=== PATIENT | female | born 1985 | race American Indian/Alaskan Native ===

== ENCOUNTER 2016-07-19 13:16 | Emergency (ER) | payer MEDICAID, OTHER ==
[2016-07-19 13:36] VITALS: BMI 28.1
--- NOTE | 2016-07-19 13:36 | OBHP ---
Datetime: 07/19/2016 13:30 IP Adm Impression: , intrauterine IP Chief Complaint Other: dizziness/cramping/vomiting Admit Comment, IP Provider: at 36weks came with c/o craming and dizziness. pt has been vomitin g through out the preg and taking reglan. vomited x 2 day,,no vb, lof,+fm, no dysuria obhx 2 x pmh den med pnv all nkda psh den soch de ve closed a/p at 36 +weeks r/o pt labor r/o uti cbc/cmp/ua cont katy and efm cont close observation Pelvic Type - PN: Adequate Extremities - PN: Normal Abdomen - PN: Normal Back - PN: Normal Breast - PN: Not Done Lungs - PN: Normal Heart - PN: Normal Thyroid - PN: Not Done Neurologic - PN: Normal HEENT - PN: Normal General - PN: Normal FHR - Baseline A Provider: 130 Contraction Comments Provider: none Comments, ACOG Physical Exam: gravid,non ten ext no edema,no jason ve closed Vital Signs Provider: Reviewed NICHD Variability Prov Fetus A: Moderate 6-25bpm NICHD Accel Fetus A IP Provider: 15X15 FHR Category Provider Fetus A: Category I NICHD Decel Fetus A IP Provider: None Dilatation, Provider: 0 Effacement, Provider: 0 Station, Provider: -3 Genitourinary Exam: Normal DTRs - PN: Normal
[2016-07-19 14:00] LABS: BASO # 0.1 K/uL (0.0-0.2); BASO % 0.9 % (0.0-2.0); EOS # 0.1 K/uL (0.0-0.7); EOS % 1.4 % (0.0-4.0); HEMATOCRIT 33.8 % (34.0-47.0); LYMPH # 1.7 K/uL (1.0-4.3); LYMPH % 24.1 % (20.0-40.0); MEAN CELL VOLUME 90.3 fL (81.0-99.0); MEAN CORPUSCULAR HEMOGLOBIN 30.3 pg (27.0-31.0); MEAN CORPUSCULAR HGB CONC 33.6 g/dL (33.0-37.0); MEAN PLATELET VOLUME 8.9 fL (7.2-11.7); MONO # 0.5 K/uL (0.0-0.8); MONO % 7.6 % (0.0-10.0); RED CELL DISTRIBUTION WIDTH 13.6 % (11.5-14.5); WHITE BLOOD COUNT 7.1 K/uL (4.8-10.8)
[2016-07-19 14:08] LABS: CHLORIDE 102 mmol/L (98-107); SODIUM 135 mmol/L (132-148)
[2016-07-19 14:11] LABS: ALKALINE PHOSPHATASE 166 U/L (38-126); ALT/SGPT 20 U/L (9-52); AST/SGOT 21 U/L (14-36); BILIRUBIN,TOTAL 1.1 mg/dL (0.2-1.3); BLOOD UREA NITROGEN 5 mg/dL (7-17); CARBON DIOXIDE 22 mmol/L (22-30); GFR AFRICAN-AMERICAN > 60; GLUCOSE,RANDOM 72 mg/dL (65-105); TOTAL PROTEIN 7.3 g/dL (6.3-8.3)
[2016-07-19 14:12] LABS: CALCIUM 8.9 mg/dl (8.6-10.4)
[2016-07-19 14:20] LABS: RBC URINE < 1 /hpf (0-3); URINE BILIRUBIN NEGATIVE (NEGATIVE); URINE BLOOD NEGATIVE (NEGATIVE); URINE COLOR Yellow (YELLOW); URINE GLUCOSE (UA) NORMAL (Normal); URINE KETONE NEGATIVE (NEGATIVE); URINE LEUKOCYTE ESTERASE 2+ Leu/uL (Negative); URINE PROTEIN NEGATIVE (NEGATIVE); URINE UROBILINOGEN NORMAL mg/dL (0.2-1.0)
[2016-07-19 14:27] LABS: URINE BACTERIA FEW (<OCC); WBC URINE 10 /hpf (0-5)
--- NOTE | 2016-07-19 14:39 | OBHP ---
Datetime: 07/19/2016 14:37 Admit Comment, IP Provider: pt was given iv. feels better. no ctxs, no vomiting, vb, lof,+fm blood test n ua 2 +le plan dc home macrobid zofran po hyration ptl given f/u in office in 2-3 days FHR - Baseline A Provider: 130 Contraction Comments Provider: none NICHD Variability Prov Fetus A: Moderate 6-25bpm NICHD Accel Fetus A IP Provider: 15X15 FHR Category Provider Fetus A: Category I
--- NOTE | 2016-07-19 14:40 | OBDCSUM ---
Datetime: 07/19/2016 14:38 Discharged to, Provider: Home Follow up at, Provider: 2-3 days Follow up in weeks, Provider: pmd Discharge Comment, Provider: dc home macrobid zofran po hyration ptl given f/u in office in 2-3 days Discharge Diagnosis Prov Other: 36 we uti gastroenteritis nst
== END 2016-07-19 14:52 | disposition home or self-care (01) ==
LOC: C.EROB 13:16
DX: O26.93 Pregnancy related conditions, unspecified, third trimester (principal); Z3A.36 36 weeks gestation of pregnancy; R10.9 Unspecified abdominal pain; R42 Dizziness and giddiness

== ENCOUNTER 2016-08-08 05:20 | Inpatient (IN) | payer MEDICAID ==
[2016-08-08 06:01] VITALS: BMI 29.1
--- NOTE | 2016-08-08 06:26 | OBHP ---
Datetime: 08/08/2016 06:17 IP Adm Impression: Term, intrauterine IP Adm Impression Other: early labor IP Admit Plan: Admit to unit Admit Comment, IP Provider: chief complaint-contractions HPI 30 y/o at 38.1 wga with c/o contractions.Patient denies vaginal bleeding or loss of fluid course uncomplicated as per patient; care with dr arora and then with dr brody PMH asthma PSH cyst removal from neck OBGY N HX Social hx denies tobacco,alcohol or illicit drug use Exam see exam section A/P 30 y/o at 38.1 wga with c/o contractions. -admit -management as per primary md dr marvin Brody aware Pelvic Type - PN: Adequate Extremities - PN: Normal Abdomen - PN: Normal Back - PN: Normal Lungs - PN: Normal Heart - PN: Normal Neurologic - PN: Normal General - PN: Normal Weight - Estimated: 3200 Presentation-Admit: Vertex Contraction Comments Provider: occ Gestation - Est Wks by US: 38.1 IP Hx Assessment: The History has been Reviewed and is Current EGA AdmitDate IP: 38.1 Vital Signs Provider: Reviewed IP Chief Complaint: Uterine contractions FHR Category Provider Fetus A: Category I Dilatation, Provider: 1 Effacement, Provider: 50 Station, Provider: -3 Genitourinary Exam: Normal DTRs - PN: Normal
[2016-08-08] MEDS ORDERED: Lactated Ringer's 1,000 ML IV SCH (06:30)
[2016-08-08 06:59] LABS: BASO % 0.3 % (0.0-2.0); EOS # 0.1 K/uL (0.0-0.7); EOS % 1.3 % (0.0-4.0); HEMATOCRIT 33.5 % (34.0-47.0); LYMPH # 1.8 K/uL (1.0-4.3); MEAN CELL VOLUME 90.9 fL (81.0-99.0); MEAN CORPUSCULAR HEMOGLOBIN 30.1 pg (27.0-31.0); MEAN CORPUSCULAR HGB CONC 33.1 g/dL (33.0-37.0); MEAN PLATELET VOLUME 9.4 fL (7.2-11.7); MONO # 0.6 K/uL (0.0-0.8); MONO % 7.7 % (0.0-10.0); WHITE BLOOD COUNT 7.9 K/uL (4.8-10.8)
[2016-08-08 07:07] LABS: CHLORIDE 104 mmol/L (98-107); POTASSIUM 3.7 mmol/L (3.6-5.2); SODIUM 132 mmol/L (132-148)
[2016-08-08 07:09] LABS: GFR AFRICAN-AMERICAN > 60
[2016-08-08 07:10] LABS: ALB/GLOB RATIO 0.9 (1.0-2.1); ALKALINE PHOSPHATASE 151 U/L (38-126); ALT/SGPT 8 U/L (9-52); AST/SGOT 18 U/L (14-36); BILIRUBIN,TOTAL 0.8 mg/dL (0.2-1.3); BLOOD UREA NITROGEN 8 mg/dL (7-17); CALCIUM 8.7 mg/dl (8.6-10.4); CARBON DIOXIDE 20 mmol/L (22-30); GLUCOSE,RANDOM 83 mg/dL (65-105); TOTAL PROTEIN 6.3 g/dL (6.3-8.3)
[2016-08-08 07:23] LABS: RBC URINE 2 /hpf (0-3); URINE BACTERIA OCC (<OCC); URINE BILIRUBIN NEGATIVE (NEGATIVE); URINE BLOOD NEGATIVE (NEGATIVE); URINE COLOR Straw (YELLOW); URINE GLUCOSE (UA) NORMAL (Normal); URINE KETONE NEGATIVE (NEGATIVE); URINE PROTEIN NEGATIVE (NEGATIVE); URINE UROBILINOGEN NORMAL mg/dL (0.2-1.0); WBC URINE 4 /hpf (0-5)
[2016-08-08 07:28] LABS: URINE LEUKOCYTE ESTERASE TRACE Leu/uL (Negative)
[2016-08-08] MEDS ORDERED: Aluminum Hydroxide/Magnesium Hydroxide Susp (30 mL) PO STA (08:18)
[2016-08-08] MEDS ORDERED: Nalbuphine 20 mg/ml Inj (1 ml) IVP PRN (09:30)
[2016-08-08] MEDS ORDERED: Oxytocin 30 UNIT 30 UNITS/500 ML BAG IV SCH ×2 (10:15→15:45)
[2016-08-08] MEDS ORDERED: Aluminum Hydroxide/Magnesium Hydroxide Susp (30 mL) PO ONE (10:15)
--- NOTE | 2016-08-08 11:25 | OBADHP ---
Datetime: 08/08/2016 06:17 IP Adm Impression Other: early labor Admit Comment, IP Provider: chief complaint-contractions HPI 30 y/o at 38.1 wga with c/o contractions.Patient denies vaginal bleeding or loss of fluid course uncomplicated as per patient; care with dr arora and then with dr brody PMH asthma PSH cyst removal from neck OBGY N HX Social hx denies tobacco,alcohol or illicit drug use Exam see exam section A/P 30 y/o at 38.1 wga with c/o contractions. -admit -management as per primary md dr marvin Brody aware Pelvic Type - PN: Adequate Extremities - PN: Normal Abdomen - PN: Normal Back - PN: Normal Lungs - PN: Normal Heart - PN: Normal Neurologic - PN: Normal General - PN: Normal Weight - Estimated: 3200 Presentation-Admit: Vertex Contraction Comments Provider: occ Gestation - Est Wks by US: 38.1 IP Hx Assessment: The History has been Reviewed and is Current Vital Signs Provider: Reviewed IP Chief Complaint: Uterine contractions FHR Category Provider Fetus A: Category I Dilatation, Provider: 1 Effacement, Provider: 50 Station, Provider: -3 Genitourinary Exam: Normal DTRs - PN: Normal EGA AdmitDate IP: 38.5 IP Adm Impression: Term, intrauterine IP Admit Plan: Admit to unit Datetime: 07/19/2016 14:37 FHR - Baseline A Provider: 130 NICHD Variability Prov Fetus A: Moderate 6-25bpm NICHD Accel Fetus A IP Provider: 15X15 Datetime: 07/19/2016 13:30 IP Chief Complaint Other: dizziness/cramping/vomiting Breast - PN: Not Done Thyroid - PN: Not Done HEENT - PN: Normal Comments, ACOG Physical Exam: gravid,non ten ext no edema,no jason ve closed NICHD Decel Fetus A IP Provider: None
[2016-08-08] MEDS ORDERED: Bupivacaine 0.125%/FentaNYL 200 ML EPI ONE (12:54)
[2016-08-08] MEDS ORDERED: Lidocaine Hydrochloride 5 ML INJ ONE (13:10)
--- NOTE | 2016-08-08 15:42 | OBPN ---
Datetime: 08/08/2016 15:39 IP Progress Impression: Normal progression of labor IP Procedures: Sterile Vag Exam FHR - Baseline A Provider: 130 IP Progress Note Comment: pt was seen at bed side ve 6/70/-2 cont pitocin anicipate Vital Signs Provider: Reviewed; Within Normal Limits NICHD Accel Fetus A IP Provider: 15X15 FHR Category Provider Fetus A: Category I NICHD Variability Prov Fetus A: Moderate 6-25bpm Dilatation, Provider: 6 Effacement, Provider: 70 Station, Provider: -2 Datetime: 08/08/2016 06:17 Contraction Comments Provider: occ Gestation - Est Wks by US: 38.1 Weight - Estimated: 3200 Presentation-Admit: Vertex Datetime: 07/19/2016 13:30 NICHD Decel Fetus A IP Provider: None
--- NOTE | 2016-08-08 16:04 | OBDS ---
DELIVERY PERSONNEL Delivery Doctor: Matthew Brody MD Toy Consultant: [place] RN MATERNAL INFORMATION Delivery Anesthesia: Epidural Estimated Blood Loss (ml): 200 Placenta Cultured: No Provider Comments: baby deliverd in [place]. end clean 2 cord arround neck , loose 1000 mcg cytotec no com LABOR SUMMARY EDC: 08/17/2016 00:00 No. Babies in Womb: 1 LABOR INFORMATION Onset of Labor: 08/08/2016 04:00 Cervical Ripening Agents: Cytotec @ (Annotations: 50 mcg PO) Group B Beta Strep: Negative Antibiotics # of Doses: 0 MEMBRANES Membranes Rupture Method: Artificial Amniotic Fluid Color: Clear Amniotic Fluid Amount: Large Amniotic Fluid Odor: Normal STAGES OF LABOR Stage 3 hrs: 0 Stage 3 min: 2 Total Time in Labor hrs: 11 Total Time in Labor min: 59 BABY A INFORMATION Infant Delivery Date/Time: 08/08/2016 15:57 Method of Delivery: Vaginal Born in Route : No : N/A Forceps: N/A Vacuum Extraction: N/A Shoulder Dystocia : No SHOULDER DYSTOCIA BABY A Delivery Date/Time: 08/08/2016 15:57 PRESENTATION/POSITION BABY A Presentation: Cephalic Cephalic Presentation: Vertex Vertex Position: Left Occipital Anterior Breech Presentation: N/A PLACENTA INFORMATION BABY A Placenta Delivery Time : 08/08/2016 15:59 Placenta Method of Delivery: Spontaneous Placenta Status: Retained SCORES BABY A Heart Rate 1 min: >100 bpm Resp Effort 1 min: Good Cry Reflex Irritability 1 min: Cough or Sneeze or Pulls Away Muscle Tone 1 min: Active Motion Color 1 min: Body [place], Extremities Blue Resuscitation Effort 1 min: N/A SCORE 1 MIN: 9 Heart Rate 5 min: >100 bpm Resp Effort 5 min: Good Cry Reflex Irritability 5 min: Cough or Sneeze or Pulls Away Muscle Tone 5 min: Active Motion Color 5 min: Body [place], Extremities Blue Resuscitation Effort 5 min: N/A SCORE 5 MIN: 9 INFANT INFORMATION BABY A Gestational Age at Delivery: 38.5 Gestational Status: Term Infant Outcome : Liveborn Condition : Stable Sex: Male IDENTIFICATION/MEDS BABY A ID Band Number: [id number] ID Band Location: Left Leg; Left Arm Sensor Applied: Yes Sensor Number: [id number] Sensor Location : Cord Clamp Vitamin K Given : Not Given Erythromycin Given: Not Given WEIGHT/LENGTH BABY A Infant Birthweight (gms): 2970 Infant Weight (lb): 6 Weight (oz): 9 CORD INFORMATION BABY A No. Cord Vessels: 3 Nuchal Cord : Around Neck x2, Loose Nuchal Cord Other: n/a True Knot: n/a Cord Blood Taken: Yes Banking/Donate Info: n/a ASSESSMENT BABY A Complications: None Physical Findings at Delivery: Within Normal Limits Infant Respirations: Appears Normal Rocket Engine Mechanic/ALS Called : No Infant Care By: Amelia Bautista RN Transferred To: Remains with Mother
--- NOTE | 2016-08-08 16:07 | OBPN ---
Datetime: 08/08/2016 16:04 IP Progress Impression: Normal progression of labor IP Procedures: Sterile Vag Exam Contraction Comments Provider: q1-4 FHR - Baseline A Provider: 130 IP Progress Note Comment: pt was examined at bed soide ve fd/100/=1 will start pushing anticipate Vital Signs Provider: Reviewed; Within Normal Limits NICHD Accel Fetus A IP Provider: 15X15 FHR Category Provider Fetus A: Category I NICHD Variability Prov Fetus A: Moderate 6-25bpm Dilatation, Provider: 10 Effacement, Provider: 100 Station, Provider: 1
[2016-08-08] MEDS ORDERED: Oxytocin 10 Units/ml Inj ONE (16:14)
[2016-08-08] MEDS: Oxycodone/Acetaminophen 5/325 mg Tab PO PRN (21:43)
[2016-08-09 00:23] VITALS: O2SAT 98
[2016-08-09] MEDS: Oxycodone/Acetaminophen 5/325 mg Tab PO PRN ×3 (06:11→19:33)
--- NOTE | 2016-08-09 08:12 | OBPPN ---
Datetime: 08/09/2016 08:11 PP Pain Prov: Within normal limits PP Nausea Prov: Denies PP Flatus Prov: Yes PP Abdomen/Uterus Prov: Normal PP Lochia Prov: Normal PP Extremities Prov: Normal PP Comments Phys Exam Prov: fudus below umblicus ext no edema,no calf ten PP Impression Prov: Normal progression PP Plan Prov: Continue present management PP Progress Note Prov: pt was seen at bed side, pain under control,no n/v, tolerating deit, voiding, min lochia,flatus + ppd#1 s/p cont pain management cont pp care Vital Signs Provider PP: Reviewed; Within Normal Limits
[2016-08-09 09:01] LABS: HEMATOCRIT 33.9 % (34.0-47.0); MEAN CELL VOLUME 91.1 fL (81.0-99.0); MEAN CORPUSCULAR HEMOGLOBIN 30.4 pg (27.0-31.0); MEAN CORPUSCULAR HGB CONC 33.3 g/dL (33.0-37.0); MEAN PLATELET VOLUME 9.2 fL (7.2-11.7); WHITE BLOOD COUNT 10.9 K/uL (4.8-10.8)
[2016-08-10 00:34] VITALS: RESP 20
[2016-08-10] MEDS: Oxycodone/Acetaminophen 5/325 mg Tab PO PRN (02:59)
--- NOTE | 2016-08-10 06:49 | OBDCSUM ---
Datetime: 07/19/2016 14:52 Discharge Diagnosis, Provider: Term Delivered Disch Activity Restrictions: No exercising; No lifting; No driving; Minimize walking; Minimize stair -climbing; No sexual activity; Nothing in vagina - [place], tampons, douche Discharge Comment, Provider: dc home no sex motrin prn f/u in 6week Discharge Diagnosis Prov Other: s/p
--- NOTE | 2016-08-10 06:50 | NBCIR ---
Datetime: 08/08/2016 05:40 Preformed by:: dr wong Circumcision Request: Yes Consent Signed: Verbal Consent Obtained; Written Consent Signed and on Chart Position: Supine; Papoose Board Circumcision Time Out: Correct Patient Identity; Correct Side and Site are Marked; Accurate Procedur e Consent Form; Agreement on Procedure to be Done; Correct Patient Position; Relevant Images and Resu lts are Properly Labeled and Displayed; Addressed Need to Administer Antibiotics or Fluids for Irriga tion Site Prep: Povidine Iodine Equipment Used: Gomco Clamp Barry Size: 1.3 Systemic Medications: None Complications: None Status: Excellent Cosmetic Outcome; Tolerated Procedure Well Parents Present: None Procedure Note: circ done by gomco 1.3 no com Datetime: 07/19/2016 13:16 PT-NAME: CHRISTI GUILLEN
[2016-08-10 08:29] VITALS: BP 114/76; PULSE 64; TEMP 97
== END 2016-08-10 12:20 | disposition home or self-care (01) | DRG 373 ==
LOC: C.EROB 05:20 → C.4D 05:40 → C.4M 18:00
PROVIDERS: ADMIT Obstetrics & Gynecology; ATTEND Obstetrics & Gynecology
PROC: 10E0XZZ Delivery of Products of Conception, External Approach (ICD-10-PCS; principal; 2016-08-08)
DX: O69.81X0 Labor and delivery complicated by cord around neck, without compression, not applicable or unspecified (principal); Z37.0 Single live birth; Z3A.38 38 weeks gestation of pregnancy